=== PATIENT | female | born 1950 ===

== ENCOUNTER 2022-07-26 10:28 | Emergency (ER) | payer MEDICARE ==
[2022-07-26] MEDS ORDERED: Orphenadrine 60 MG/2 ML Inj IM ONE (13:02)
[2022-07-26] MEDS ORDERED: Ketorolac 30 MG/ML SDV IVPUSH ONE (13:02)
[2022-07-26] MEDS ORDERED: Take Home: Cyclobenzaprine 10 MG Tab, 4 Tab Pack PO ONE (13:04)
== END 2022-07-26 13:36 | disposition home or self-care (01) ==
LOC: DL.ED 10:28
DX: M62.830 Muscle spasm of back (principal); M85.80 Other specified disorders of bone density and structure, unspecified site
CPT/HCPCS: 72070; 72100; 96372; 96374; 99284; A9270; J1885; J2360; 99283

== ENCOUNTER 2024-03-29 12:54 | Emergency (ER) | payer MEDICARE ==
[2024-03-29] MEDS ORDERED: Sodium Chloride 0.9% 10 ML Syringe FLUSH PRN (14:05)
[2024-03-29] MEDS ORDERED: Midazolam 5 MG/ML 10 ML MDV IV ONE (14:05)
[2024-03-29] MEDS ORDERED: Sodium Chloride 0.9% 500 ML IV SCH (14:15)
[2024-03-29] MEDS: fentaNYL 100 MCG/2 ML SDV IVPUSH ONE (15:09)
[2024-03-29] MEDS: Midazolam 1 MG/ML 2 ML SDV ONE (15:13)
[2024-03-29] MEDS: Midazolam 1 MG/ML 2 ML SDV IVPUSH ONE (15:14)
== END 2024-03-29 16:28 | disposition home or self-care (01) ==
LOC: DL.ED 12:54
DX: S52.591A Other fractures of lower end of right radius, initial encounter for closed fracture (principal); S52.611A Displaced fracture of right ulna styloid process, initial encounter for closed fracture; W01.0XXA Fall on same level from slipping, tripping and stumbling without subsequent striking against object, initial encounter; Y93.89 Activity, other specified
CPT/HCPCS: 25605; 73100; 73110; 96372; 99283; J2250; J3010